=== PATIENT | male | born 1940 | race Caucasian/White ===

== ENCOUNTER → 2024-01-01 | Outpatient (CLI) | payer OTHER ==
[~2024-01-01] MED LIST: BARIUM SULFATE 98% 340 GM PWDR ONE
== END | disposition home or self-care (01) ==
LOC: XYW 14:57
PROVIDERS: ATTEND Internal Medicine Gastroenterology
DX: R05.8 Other specified cough (principal)
CPT/HCPCS: 74220; 92507; 92611